=== PATIENT | male | born 1985 | race African-American/Black ===

== ENCOUNTER 2025-08-20 16:05 | Emergency (ER) | payer MEDICAID, OTHER ==
[~2025-08-20] VITALS: Ht 172.7 cm; Wt 77.0 kg
[~2025-08-20 16:05] MED LIST: ALBU2.5V13
[2025-08-20 16:08] VITALS: O2SAT 99
[2025-08-20] MEDS: OLANZAPINE 5MG TABLET ODT PO ONE (16:15)
[2025-08-20 16:53] LABS: BASOPHILS % 1.4 % (0.0-2.0); EOSINOPHILS % 0.9 % (0.0-5.0); HEMATOCRIT. 39.5 % (42.0-52.0); HEMOGLOBIN. 13.3 g/dL (14.0-18.0); LYMPHOCYTES % 36.6 % (20.0-50.0); MEAN PLATELET VOLUME 8.4 fl (7.4-10.4); MONOCYTES % 9.0 % (2.0-8.0); NEUTROPHILS % 52.1 % (40.0-76.0); PLATELET 274 x1000/uL (130-400); RED BLOOD CELL COUNT 4.54 mill/uL (4.7-6.1); RED CELL DISTRIBUTION WIDTH 15.1 % (11.6-14.6)
[2025-08-20 17:14] LABS: CREATININE 1.2 mg/dL (0.6-1.3); UREA NITROGEN BLOOD 17 mg/dL (9-23)
[2025-08-20 17:15] LABS: ETHANOL BLOOD < 10 mg/dL (<10)
[2025-08-20 17:16] LABS: ASPARTATE AMINOTRANSFERASE 36 IU/L (<34); BILIRUBIN DIRECT 0.2 mg/dL (<=3.0)
[2025-08-20 17:17] LABS: BILIRUBIN TOTAL 0.9 mg/dL (0.1-1.0); PROTEIN TOTAL 7.1 g/dL (6.0-8.3)
[2025-08-20 17:30] LABS: *AMPHETAMINES SCREEN URINE PRESUMPTIVE POSITIVE (NEGATIVE); *BARBITURATES SCREEN URINE NEGATIVE (NEGATIVE); *BENZODIAZEPINES SCREEN URINE NEGATIVE (NEGATIVE); *COCAINE SCREEN URINE PRESUMPTIVE POSITIVE (NEGATIVE); CANNABINOID URINE SCREEN PRESUMPTIVE POSITIVE (NEGATIVE); ECSTASY MDMA SCREEN URINE CONF.TEST INDICATED (NEGATIVE); METHADONE URINE SCREEN NEGATIVE (NEGATIVE); OPIATES URINE SCREEN NEGATIVE (NEGATIVE); PHENCYCLIDINE URINE SCREEN NEGATIVE (NEGATIVE)
[2025-08-21] MEDS: OLANZAPINE 10 MG/VIAL IM ONE
[2025-08-21] MEDS: QUETIAPINE FUMARATE 50MG TABLET PO SCH (00:28)
[2025-08-21] MEDS: LORAZEPAM 2MG/ML UD SYRINGE IM NR (00:43)
[2025-08-21] MEDS: HALOPERIDOL LACTATE 5MG/ML VIAL IM ONE (00:43)
[2025-08-21] MEDS: DIPHENHYDRAMINE 50MG/ML VIAL IM ONE (00:43)
[2025-08-21 04:40] VITALS: BP 114/75; PULSE 78; RESP 16; TEMP 37; O2SAT 98
[2025-08-21] MEDS ORDERED: QUETIAPINE FUMARATE 50MG TABLET PO SCH (09:00)
== END 2025-08-21 05:01 ==
LOC: ER 16:05
DX: R45.851 Suicidal ideations (principal); I10 Essential (primary) hypertension; F25.9 Schizoaffective disorder, unspecified; Z79.899 Other long term (current) drug therapy; Z88.8 Allergy status to other drugs, medicaments and biological substances
CPT/HCPCS: 80076; 80305; 80048; 80307; 80329; 80320; 85025; 36415; 93005; 99285; 87426; 96372; J3490; Z7610 ×2; J1200; J1630; J2060; G0480